=== PATIENT | female | born 1980 | race Caucasian/White ===

== ENCOUNTER 2022-02-19 20:49 | Emergency (ER) | payer BC, MEDICAID ==
[2022-02-19 21:26] LABS: ALBUMIN 4.1 g/dL (3.2-5.5); ALBUMIN/GLOBULIN RATIO 1.1 (1.0-2.2); BILIRUBIN,TOTAL 0.5 mg/dL (0.2-1.0); CALCIUM 9.4 mg/dL (8.5-10.3); CREATININE 0.7 mg/dL (0.4-1.0); POTASSIUM 3.8 mmol/L (3.5-5.0); TOTAL PROTEIN 7.9 g/dL (6.7-8.2)
[2022-02-19 21:40] LABS: BILIRUBIN,URINE NEGATIVE (NEGATIVE); GLUCOSE, URINE (UA) NEGATIVE (NEGATIVE); KETONES,URINE (UA) NEGATIVE (NEGATIVE); LEUKOCYTE ESTERASE, URINE NEGATIVE (NEGATIVE); NITRITE,URINE NEGATIVE (NEGATIVE); OCCULT BLOOD,URINE TRACE-INTA (NEGATIVE); PROTEIN,URINE NEGATIVE (NEGATIVE); UROBILINOGEN,URINE 0.2 (NORMAL) E.U./dL (NORMAL)
[2022-02-19 21:42] LABS: CLARITY,URINE CLEAR (CLEAR); HCG UR QUAL NEGATIVE
[2022-02-19 21:45] LABS: BASOPHILS % (AUTO) 0.5 %; EOSINOPHILS # (AUTO) 0.1 10^3/uL (0.0-0.7); EOSINOPHILS % (AUTO) 0.7 %; HCT - HEMATOCRIT 40.9 % (37.0-47.0); HGB - HEMOGLOBIN 13.5 g/dL (12.0-16.0); LYMPHOCYTES # (AUTO) 0.8 10^3/uL (1.5-3.5); LYMPHOCYTES % (AUTO) 9.8 %; MEAN CORPUSCULAR HEMOGLOBIN 27.4 pg (27.0-31.0); MEAN CORPUSCULAR VOLUME 83.1 fL (81.0-99.0); MEAN PLATELET VOLUME 9.5 fL (7.9-10.8); MONOCYTES # (AUTO) 0.9 10^3/uL (0.0-1.0); MONOCYTES % (AUTO) 10.2 %; NEUTROPHILS # (AUTO) 6.6 10^3/uL (1.5-6.6); NEUTROPHILS % (AUTO) 78.7 %; PLT - PLATELET COUNT 218 10^3/uL (130-450); RED BLOOD COUNT 4.92 10^6/uL (4.20-5.40); RED CELL DISTRIBUTION WIDTH 13.5 % (12.0-15.0); WHITE BLOOD COUNT 8.4 x10^3/uL (4.8-10.8)
--- NOTE | 2022-02-19 21:59 | ED Physician Documentation ---
PD HPI ABD PAIN - Stated complaint Stated Complaint: LOW ABD PX - Chief complaint Chief Complaint: Abd Pain - History obtained from History obtained from: Patient - History of Present Illness Timing - onset: How many days ago (3) Timing - details: Intermittant Pain level max: 6 Pain level now: 0 Quality: Sharp Location: Other (across lower abdomen, R>L) Improved by: Other (no ameliorating factors) Worsened by: Other (no exacerbating factors) Associated symptoms: Nausea. No: Fever, Vomiting, Diarrhea, Constipation, Melena, Hematochezia Similar symptoms before: Has not had sx before Recently seen: Not recently seen - Additional information Additional information: c/o lower abdominal pain, worse on right than left, episodic x 3 days. She had a more severe episode than previous few days tonight prompting her to come to ED although without intervention (such as pain medication), the pain has resolved by the time of this evaluation. She does still have some degree of TTP. Denies h/o similar symptoms. Review of Systems Constitutional: reports: Reviewed and negative Cardiac: reports: Reviewed and negative Respiratory: reports: Reviewed and negative GI: reports: Abdominal Pain, Nausea. 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 - Present Medications Home Medications: Ambulatory Orders Medication Instructions Recorded Confirmed Amox/Clav 875/125 [Augmentin 1 tablet PO Q12H 7 Days #14 tablet 02/19/22 875/125 Tab] - Allergies Allergies/Adverse Reactions: Allergies Allergy/AdvReac Type Severity Reaction Status Date / Time No Known Drug Allergies Allergy Verified 02/19/22 20:55 - Social History Does the pt smoke?: No Smoking Status: Never smoker Does the pt drink ETOH?: Yes Does the pt have substance abuse?: No - POLST Patient has POLST: No PD ED PE NORMAL - Vitals Vital signs reviewed: Yes - General General: Alert and oriented X 3, No acute distress, Well developed/nourished - HEENT HEENT: Moist mucous membranes - Cardiac Cardiac: RRR, No murmur - Respiratory Respiratory: No respiratory distress, Clear bilaterally - Abdomen Abdomen: Soft, Non distended, Other (mild TTP across lower abdomen, predominantly midline and RLQ without rebound or guarding. ) - Back Back: No CVA TTP - Derm Derm: Normal color, Warm and dry Results - Vitals Vitals: Vital Signs - 24 hr 02/19/22 02/19/22 02/19/22 20:50 21:23 23:53 Temperature 36.3 C L 37.2 C Heart Rate 114 H 104 H 84 Respiratory 16 14 Rate Blood Pressure 139/89 H 110/67 124/78 O2 Saturation 100 96 98 Oxygen O2 Source Room air - Labs Labs: Laboratory Tests 02/19/22 02/19/22 02/19/22 21:05 21:08 21:40 WBC 8.4 RBC 4.92 Hgb 13.5 Hct 40.9 MCV 83.1 MCH 27.4 MCHC 33.0 RDW 13.5 Plt Count 218 MPV 9.5 Neut # (Auto) 6.6 Lymph # (Auto) 0.8 L Clinch # (Auto) 0.9 Eos # (Auto) 0.1 Baso # (Auto) 0.0 Absolute Nucleated RBC 0.00 Nucleated RBC % 0.0 Sodium 139 Potassium 3.8 Chloride 105 Carbon Dioxide 22 Anion Gap 12.0 BUN 14 Creatinine 0.7 Estimated GFR (MDRD) 93 Glucose 120 H Calcium 9.4 Total Bilirubin 0.5 AST 29 ALT 27 Alkaline Phosphatase 62 Total Protein 7.9 Albumin 4.1 Globulin 3.8 Albumin/Globulin Ratio 1.1 Lipase 41 Urine Color YELLOW Urine Clarity CLEAR Urine pH 6.0 Ur Specific [place] >=1.030 H Urine Protein NEGATIVE Urine Glucose (UA) NEGATIVE Urine Ketones NEGATIVE Urine Occult Blood TRACE-INTA Urine Nitrite NEGATIVE Urine Bilirubin NEGATIVE Urine Urobilinogen 0.2 (NORMAL) Ur Leukocyte Esterase NEGATIVE Ur Microscopic Review NOT INDICATED Urine Culture Comments NOT INDICATED Urine HCG, Qual NEGATIVE - Rads (name of study) CT A/P Radiology: Prelim report reviewed, See rad report PD MEDICAL DECISION MAKING - ED course Complexity details: reviewed results, re-evaluated patient, considered differential, d/w patient ED course: noncontrast CT A/P performed due to national shortage of IV contrast (and PO contrast not used due to low likelihood of benefit vs no PO contrast for the differential diagnoses being considered). CT A/P demonstrates findings c/w diverticulitis , uncomplicated (no evidence of perforation , abscess). Results d/w patient. She is given PO augmentin and rx for augmentin is electronically submitted to her pharmacy of choice. We did discuss the option of no antibiotics which would be compatible strategy for outpatient treatment of diverticulitis, but patient prefers antibiotic tx. Return precautions discussed. Departure - Departure Disposition: 01 Home, Self Care Clinical Impression: Diverticulitis of gastrointestinal tract Condition: Good Instructions: ED Diverticulitis Prescriptions: Amox/Clav 875/125 [Augmentin 875/125 Tab] 1 tablet PO Q12H 7 Days #14 tablet Comments: A prescription for augmentin (antibiotic) has been electronically submitted to [facility] in [place]. Discharge Date/Time: 02/19/22 23:53
--- NOTE | 2022-02-19 22:54 | CT Report ---
PROCEDURE: Abdomen/Pelvis WO INDICATIONS: RLQ pain, mild tenderness TECHNIQUE: Noncontrast 5 mm thick sections acquired from the diaphragms to the symphysis. 5 mm coronal and sagi ttal reformats were then performed. For radiation dose reduction, the following was used: automated exposure control, adjustment of mA and/or kV according to patient size. COMPARISON: None. FINDINGS: Image quality: Excellent. ABDOMEN: Lung bases: Lung bases are clear. Heart size is normal. Solid organs: Liver and spleen are normal in size. Gallbladder appears normal Pancreas is normal i n contours. No adrenal nodules. Kidneys are normal in size, without hydronephrosis or nephrolithias is. Peritoneum and bowel: Unenhanced bowel loops demonstrate normal wall thickness and caliber. No free fluid or air. Nodes and vessels: No retroperitoneal or mesenteric adenopathy by size criteria. Aorta and inferior vena cava are normal in caliber. Miscellaneous: No ventral hernias. PELVIS: Genitourinary: Bladder wall thickness is normal. Miscellaneous: No inguinal hernias or adenopathy. There is, however, definite acute diverticulitis involving the sigmoid colon, as it crosses the midline anteriorly. This is associated with adjacent m esenteric edema but no evidence of abscess formation or bowel perforation is seen. Normal appendix fo und at the right lower quadrant, gas-filled. Bones: No suspicious bony lesions. No vertebral body compression fractures. IMPRESSION: Acute diverticulitis within the sigmoid colon, low midline anterior pelvis. No abscess formation susp ected. Elsewhere the study is normal. Normal appendix found right lower quadrant. Reviewed by: Agapito Palomo MD on 02/19/2022 10:52 PM PDT Approved by: Agapito Palomo MD on 02/19/2022 10:52 PM PDT Station ID: [id number]
[2022-02-19] MEDS ORDERED: AMOX/CLAV 875 MG/125 MG TABLET PO STA (23:43)
[2022-02-19] MEDS ORDERED: FLUCONAZOLE 100 MG TABLET PO STA (23:44)
[2022-02-19 23:55] VITALS: BP 124/78
== END 2022-02-19 23:53 | disposition home or self-care (01) ==
LOC: ED 20:49
DX: K57.32 Diverticulitis of large intestine without perforation or abscess without bleeding (principal)
CPT/HCPCS: 36415; 74176; 80053; 81003; 81025; 83690; 85025; 99284; A9270; 81001; 87086